=== PATIENT | female | born 1960 | race Caucasian/White ===

== ENCOUNTER 2018-01-18 06:32 | Day surgery (SDC) | payer OTHER | END 2018-01-18 13:15 | disposition home or self-care (01) | LOC: AMB-ENDOS 06:32 | DX: D12.3 Benign neoplasm of transverse colon (principal); D13.1 Benign neoplasm of stomach ==

== ENCOUNTER 2020-06-04 05:25 | Day surgery (SDC) | payer OTHER | END 2020-06-04 10:50 | disposition home or self-care (01) | LOC: AMB-ENDOS 05:25 | PROVIDERS: ATTEND Colon & Rectal Surgery | DX: D13.1 Benign neoplasm of stomach (principal); K44.9 Diaphragmatic hernia without obstruction or gangrene; K64.1 Second degree hemorrhoids; Z20.822 Contact with and (suspected) exposure to COVID-19 ==